=== PATIENT | male | born 1995 | race Caucasian/White ===

== ENCOUNTER 2017-11-06 05:07 | Day surgery (SDC) | payer SELFPAY ==
[2017-11-06] MEDS ORDERED: GLUCAGON 1 MG/VIAL ONE ×2 (06:22→08:08)
--- NOTE | 2017-11-06 09:05 | ER ---
Nurse's Notes [facility] Name: Adalberto Kidd Age: 22 yrs Sex: Male : 1995 Arrival Date: 11/06/2017 Time: 05:10 Bed 4 Private MD: Diagnosis: Esophageal obstruction-Food bolus Presentation: 11/06 05:19 Presenting complaint: Patient states: he has a piece of steak from a fajita he ate last bb night at approx 1800 has tried to get it out himself but has not been successful pt has had this happen in the past several times but it has always been resolved on its own. Pt is now having chest pain as well. Transition of care: patient was not received from another setting of care. Onset of symptoms was November 05, 2017. Risk Assessment: Do you want to hurt yourself or someone else? Patient reports no desire to harm self or others. Initial Sepsis Screen: Does the patient meet any 2 criteria? No. Patient's initial sepsis screen is negative. Does the patient have a suspected source of infection? No. Patient's initial sepsis screen is negative. Care prior to arrival: None. 05:19 Method Of Arrival: Ambulatory bb 05:19 Acuity: IRVIN 2 bb Historical: - Allergies: 05:21 No Known Allergies; bb - Home Meds: 05:21 None [Active]; bb - PMHx: 05:21 None; bb - PSHx: 05:21 None; bb - Immunization history:: Adult Immunizations up to date. - Social history:: Smoking status: Patient/guardian denies using tobacco, Patient uses alcohol, occasionally. Patient/guardian denies using street drugs. - Ebola Screening: : No symptoms or risks identified at this time. Screenin:27 Abuse screen: Denies threats or abuse. Denies injuries from another. Nutritional lp1 screening: No deficits noted. Tuberculosis screening: No symptoms or risk factors identified. Fall Risk None identified. Assessment: 05:22 General: Appears in no apparent distress. Behavior is calm, cooperative, appropriate lp1 for age. Pain: Complains of pain in throat Pain currently is 6 out of 10 on a pain scale. Neuro: Level of Consciousness is awake, alert, obeys commands. Cardiovascular: Patient's skin is warm and dry. Respiratory: Respiratory effort is even, unlabored, Respiratory pattern is regular, symmetrical. GI: No signs and/or symptoms were reported involving the gastrointestinal system. : No signs and/or symptoms were reported regarding the genitourinary system. EENT: Reports difficulty swallowing States feeling like piece of fajita meat is stuck in throat. Derm: Skin is pink, warm \\T\\ dry. Musculoskeletal: Circulation, motion, and sensation intact. 06:25 Reassessment: Patient appears in no apparent distress at this time. No changes from lp1 previously documented assessment. Patient and/or family updated on plan of care and expected duration. Pain level reassessed. Patient sitting comfortably, no drooling noted. 07:15 Reassessment: Patient appears in no apparent distress at this time. Patient and/or hb family updated on plan of care and expected duration. Pain level reassessed. Patient is alert, oriented x 3, equal unlabored respirations, skin warm/dry/pink. 08:08 Reassessment: Pt c/o substernal and throat "pressure." NAD. SpO2 100% on RA. DURABLE MEDICAL EQUIPMENT TECHNICIAN Rodney notified, repeat glucagon administered as ordered. 08:46 Reassessment: PO challenge failed. Pt had immediate pain and vomit after 1 sip of hb water. AGUSTIN Stevens notified. 09:40 Reassessment: Patient appears in no apparent distress at this time. Patient and/or hb family updated on plan of care and expected duration. Pain level reassessed. Patient is alert, oriented x 3, equal unlabored respirations, skin warm/dry/pink. Admission ordered, awaiting room assignment at this time. Vital Signs: 05:21 BP 127 / 89; Pulse 86; Resp 16 S; Temp 97.9(O); Pulse Ox 98% on R/A; Weight 97.52 kg bb (R); Height 5 ft. 6 in. (167.64 cm) (R); Pain 7/10; 06:25 BP 127 / 87; Pulse 92; Resp 18; Pulse Ox 100% on R/A; lp1 07:23 BP 128 / 86; Pulse 98; Resp 18; Pulse Ox 99% ; sv 08:09 BP 106 / 56; Pulse 88; Resp 15; Pulse Ox 100% on R/A; hb 09:00 BP 102 / 47; Pulse 78; Resp 15; Pulse Ox 100% on R/A; hb 05:21 Body Mass Index 34.70 (97.52 kg, 167.64 cm) ED Course: 05:10 Patient arrived in ED. es 05:21 Triage completed. bb 05:21 Milena Alvarado RN is Primary Nurse. lp1 05:21 Arm band placed on Patient placed in an exam room, on a stretcher, on pulse oximetry. bb 05:28 Patient has correct armband on for positive identification. lp1 06:04 Rodney Barnett NP is PHCP. pm1 06:04 Jude Mcpherson MD is Attending Physician. pm1 06:24 Inserted saline lock: 20 gauge in right antecubital area, using aseptic technique. lp1 06:52 Primary Nurse role handed off by Milena Alvarado RN 07:56 Barbara Arnold RN is Primary Nurse. hb 09:02 Arnav Ortiz MD is Hospitalizing Provider. pm1 Administered Medications: 06:24 Drug: Glucagon 1 mg Route: IVP; Site: right antecubital; lp1 07:10 Follow up: Response: No adverse reaction hb 08:07 Drug: Glucagon 1 mg Route: IVP; Site: right antecubital; hb Outcome: 09:04 Decision to Hospitalize by Provider. pm1 10:25 Patient left the ED. Signatures: Loretta Garcia RN ESTUARDO Nina Kessler Iliana Villalobos RN RN Milena Alvarado RN RN lp1 Rodney Barnett NP DURABLE MEDICAL EQUIPMENT TECHNICIAN pm1 Barbara Arnold RN RN Anusha Bowen Corrections: (The following items were deleted from the chart) 06:26 06:25 Reassessment: Patient appears in no apparent distress at this time. No changes lp1 from previously documented assessment. Patient and/or family updated on plan of care and expected duration. Pain level reassessed. lp1 08:09 07:56 Reassessment: Patient appears in no apparent distress at this time. Patient hb and/or family updated on plan of care and expected duration. Pain level reassessed. Patient is alert, oriented x 3, equal unlabored respirations, skin warm/dry/pink. hb
--- NOTE | 2017-11-06 09:05 | EDPHYS ---
Physician Documentation [facility] Name: Adalberto Kidd Age: 22 yrs Sex: Male : 1995 Arrival Date: 11/06/2017 Time: 05:10 Bed 4 Private MD: ED Physician Jude Mcpherson HPI: 11/06 07:00 This 22 yrs old Male presents to ER via Ambulatory with complaints of Food pm1 stuck in throat. 07:00 The patient presents with a foreign body sensation in the throat. The patient describes pm1 throat pain as constant. Onset: The symptoms/episode began/occurred last night, at 18:00. Severity of symptoms: in the emergency department the symptoms are unchanged, despite home interventions. Modifying factors: The symptoms are alleviated by nothing, the symptoms are aggravated by fluids, foods, Patient's oral intake status: unable to tolerate fluids, unable to tolerate foods. Associated signs and symptoms: Pertinent positives: chest pain, Sore throat Pertinent negatives shortness of breath. The patient has experienced similar episodes in the past, Patient reports that he has difficulty with swallowing meats for many years. When he eats meats he has to zina it down with fluids in order get it to pass. Last night was the first time that he was unable to get the food to pass. Patient ate a piece of steak. The patient has not recently seen a physician, and does not have an established primary care provider. Historical: - Allergies: 05:21 No Known Allergies; bb - Home Meds: 05:21 None [Active]; bb - PMHx: 05:21 None; bb - PSHx: 05:21 None; bb - Immunization history:: Adult Immunizations up to date. - Social history:: Smoking status: Patient/guardian denies using tobacco, Patient uses alcohol, occasionally. Patient/guardian denies using street drugs. - Ebola Screening: : No symptoms or risks identified at this time. ROS: 07:00 Constitutional: Negative for fever, chills, and weight loss, Eyes: Negative for injury, pm1 pain, redness, and discharge, Neck: Negative for injury, pain, and swelling. 07:00 Respiratory: Negative for shortness of breath, cough, wheezing, and pleuritic chest pain, Abdomen/GI: Negative for abdominal pain, nausea, vomiting, diarrhea, and constipation, Back: Negative for injury and pain, : Negative for injury, bleeding, discharge, and swelling, MS/Extremity: Negative for injury and deformity, Skin: Negative for injury, rash, and discoloration. 07:00 Neuro: Negative for headache, weakness, numbness, tingling, and seizure. 07:00 ENT: Positive for difficulty swallowing, foreign body sensation, Negative for difficulty handling secretions. 07:00 Cardiovascular: Positive for chest pain, Negative for edema, palpitations. Exam: 07:00 Constitutional: This is a well developed, well nourished patient who is awake, alert, pm1 and in no acute distress. Head/Face: Normocephalic, atraumatic. Eyes: Pupils equal round and reactive to light, extra-ocular motions intact. Lids and lashes normal. Conjunctiva and sclera are non-icteric and not injected. Cornea within normal limits. Periorbital areas with no swelling, redness, or edema. ENT: Nares patent. No nasal discharge, no septal abnormalities noted. Tympanic membranes are normal and external auditory canals are clear. Oropharynx with no redness, swelling, or masses, exudates, or evidence of obstruction, uvula midline. Mucous membranes moist. Neck: Trachea midline, no thyromegaly or masses palpated, and no cervical lymphadenopathy. Supple, full range of motion without nuchal rigidity, or vertebral point tenderness. No Meningismus. Chest/axilla: Normal chest wall appearance and motion. Nontender with no deformity. No lesions are appreciated. Cardiovascular: Regular rate and rhythm with a normal S1 and S2. No gallops, murmurs, or rubs. No pulse deficits. Respiratory: Lungs have equal breath sounds bilaterally, clear to auscultation and percussion. No rales, rhonchi or wheezes noted. No increased work of breathing, no retractions or nasal flaring. Abdomen/GI: Soft, non-tender, with normal bowel sounds. No distension or tympany. No guarding or rebound. No evidence of tenderness throughout. Back: No spinal tenderness. No costovertebral tenderness. Full range of motion. Skin: Warm, dry with normal turgor. Normal color with no rashes, no lesions, and no evidence of cellulitis. MS/ Extremity: Pulses equal, no cyanosis. Neurovascular intact. Full, normal range of motion. 07:00 Neuro: Orientation: is normal, Motor: is normal, Sensation: is normal, no obvious gross deficits. Vital Signs: 05:21 BP 127 / 89; Pulse 86; Resp 16 S; Temp 97.9(O); Pulse Ox 98% on R/A; Weight 97.52 kg bb (R); Height 5 ft. 6 in. (167.64 cm) (R); Pain 7/10; 06:25 BP 127 / 87; Pulse 92; Resp 18; Pulse Ox 100% on R/A; lp1 07:23 BP 128 / 86; Pulse 98; Resp 18; Pulse Ox 99% ; sv 08:09 BP 106 / 56; Pulse 88; Resp 15; Pulse Ox 100% on R/A; hb 09:00 BP 102 / 47; Pulse 78; Resp 15; Pulse Ox 100% on R/A; hb 05:21 Body Mass Index 34.70 (97.52 kg, 167.64 cm) bb MDM: 06:18 Patient medically screened. pm1 08:30 ED course: Patient reports no improvement with medications given. Patient still has pm1 food bolus sensation. 08:42 Data reviewed: vital signs. Data interpreted: Pulse oximetry: on room air is 100 %. pm1 Interpretation: normal. 08:47 Physician consultation: Arnav Ortiz MD was called at 08:47, was contacted at 08:47, pm1 regarding patient's condition, and will see patient in OR, at 1130 and will perform EGD. 11/06 06:14 Order name: IV Saline Lock; Complete Time: 06:24 pm1 Administered Medications: 06:24 Drug: Glucagon 1 mg Route: IVP; Site: right antecubital; lp1 07:10 Follow up: Response: No adverse reaction hb 08:07 Drug: Glucagon 1 mg Route: IVP; Site: right antecubital; hb Disposition: 11/06/17 09:04 Hospitalization ordered by Arnav Ortiz for Observation. Preliminary diagnosis is Esophageal obstruction - Food bolus. - Bed requested for Operating Room. - Status is Observation. hb - Condition is Stable. - Problem is new. - Symptoms are unchanged. UTI on Admission? No Addendum: 11/11/2017 19:01 Co-signature as Attending Physician, Jude Mcpherson MD. lokesh marrufo Signatures: Jude Mcpherson MD MD pkl Ballard, Brenda, RN RN Milena Lugo RN RN lp1 Rodney Barnett, REAL ESTATE APPRAISER SUPERVISOR REAL ESTATE APPRAISER SUPERVISOR pm1 Barbara Arnold, RN RN hb Anusha Bowen Corrections: (The following items were deleted from the chart) 11/06 09:56 09:04 Hospitalization Ordered by Arnav Ortiz MD for Observation. Preliminary eb diagnosis is Esophageal obstruction - Food bolus. Bed requested for Operating Room. Status is Observation. Condition is Stable. Problem is new. Symptoms are unchanged. UTI on Admission? No. pm1 10:25 09:56 11/06/2017 09:04 Hospitalization Ordered by Arnav Ortiz MD for Observation. Preliminary diagnosis is Esophageal obstruction - Food bolus. Bed requested for Operating Room. Status is Observation. Condition is Stable. Problem is new. Symptoms are unchanged. UTI on Admission? No. eb
[2017-11-06] MEDS ORDERED: Ringers Lactate 1,000 ML IV ONE (10:40)
[2017-11-06] MEDS ORDERED: LIDOCAINE 1% MPF 2 ML AMPULE ONE (11:26)
[2017-11-06] MEDS ORDERED: PROPOFOL 200 MG/20 ML VIAL IV ONE (11:26)
[2017-11-06] MEDS ORDERED: MIDAZOLAM HCL 2 MG/2 ML INJ ONE (12:06)
--- NOTE | 2017-11-06 12:28 | ENDO RPT ---
[address], [address] EGD PROCEDURE REPORT EXAM DATE: 11/06/2017 PATIENT NAME: Adalberto Kidd MR#: [id number] BIRTHDATE: 1995 ATTENDING: Arnav Ortiz Dr STATUS: outpatient PEDIATRIC RN: Allyn Lopez and Norma Sam RN INDICATIONS: The patient is a 22 yr old Male here for an EGD due to dysphagia and chest pain PROCEDURE PERFORMED: EGD with foreign body removal and EGD with biopsy MEDICATIONS: Per Anesthesia. TOPICAL ANESTHETIC: none CONSENT: The patient understands the risks and benefits of the procedure and understands that these risks include, but are not limited to: sedation, allergic reaction, infection, perforation and/or bleeding. Alternative means of evaluation and treatment include, among others: physical exam, x-rays, and/or surgical intervention. The patient elects to proceed with this endoscopic procedure. DESCRIPTION OF PROCEDURE: During intra-op preparation period all mechanical medical equipment was checked for proper function. Hand hygiene and appropriate measures for infection prevention was taken. Procedure, possible complications, and alternatives including but not limited to the possibility of bleeding, perforation, tear, infection, sepsis, need for surgery, need for blood transfusion, and anesthesia related complications were explained to the patient. After the risks, benefits and alternatives of the procedure were thoroughly explained, Informed consent was verified, confirmed and timeout was successfully executed by the treatment team. The patient was placed in the left lateral position. The patient was anesthetized with topical anesthesia. Through the anesthetized oropharyngeal area, the scope was passed without any difficulty. The [id number] ([id number]) endoscope was introduced through the mouth and advanced to the second portion of the duodenum. Retroflexed views revealed a small hiatal hernia. The gastroscope was then slowly withdrawn and removed. Linear furrows were found in the upper to mid esophagus. Multiple biopsies were obtained after removal of meat bolus and sent to pathology. Large meat (steak) bolus impacted in the distal esophagus, pushed into the stomach with endoscope. LA Class D esophagitis was found in the lower esophagus. A secondary stricture was found in the lower esophagus. A small hiatal hernia was found Mild gastritis was found in the antrum. Multiple biopsies were obtained and sent to pathology. Multiple (2) small (2 mm) ulcers (one with central dark heme) were found in the antrum. Duodenitis was found in the bulb of the duodenum. Multiple ( 6) 2-8 mm shallow clean-based ulcers were found in the bulb of the duodenum. ADVERSE EVENTS: There were no complications. IMPRESSIONS: 1. Linear furrows in the upper to mid esophagus, s/p biopsies after foreign body removal 2. Large meat (steak) bolus impacted in the distal esophagus, pushed into the stomach with endoscope 3. LA Class D esophagitis in the lower esophagus 3. 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 A small hiatal hernia 5. Mild gastritis in the antrum, s/p biopsies 6. Multiple (2) small (2 mm) ulcers (one with central dark heme) in the antrum 7. Duodenitis in the bulb of the duodenum 8. Multiple ( 6) 2-8 mm shallow clean-based ulcers in the bulb of the duodenum RECOMMENDATIONS: 1. await biopsy results 2. acid suppression therapy REPEAT EXAM: Return in 2 week(s) for EGD with dilatation. Arnav Ortiz Dr eSigned: Arnav Ortiz Dr 11/06/2017 12:27 PM cc: CPT CODES: ICD9 CODES: PATIENT NAME: Adalberto Kidd MR#: [id number]
--- NOTE | 2017-11-06 12:38 | ENDO RPT ---
[address], [address] EGD PROCEDURE REPORT EXAM DATE: 11/06/2017 PATIENT NAME: Adalberto Kidd MR#: [id number] BIRTHDATE: 1995 ATTENDING: Arnav Ortiz Dr STATUS: outpatient TERMITE TECHNICIAN: Allyn Lopez and Norma Sam RN INDICATIONS: The patient is a 22 yr old Male here for an EGD due to dysphagia and chest pain PROCEDURE PERFORMED: EGD with foreign body removal and EGD with biopsy MEDICATIONS: Per Anesthesia. TOPICAL ANESTHETIC: none CONSENT: The patient understands the risks and benefits of the procedure and understands that these risks include, but are not limited to: sedation, allergic reaction, infection, perforation and/or bleeding. Alternative means of evaluation and treatment include, among others: physical exam, x-rays, and/or surgical intervention. The patient elects to proceed with this endoscopic procedure. DESCRIPTION OF PROCEDURE: During intra-op preparation period all mechanical medical equipment was checked for proper function. Hand hygiene and appropriate measures for infection prevention was taken. Procedure, possible complications, and alternatives including but not limited to the possibility of bleeding, perforation, tear, infection, sepsis, need for surgery, need for blood transfusion, and anesthesia related complications were explained to the patient. After the risks, benefits and alternatives of the procedure were thoroughly explained, Informed consent was verified, confirmed and timeout was successfully executed by the treatment team. The patient was placed in the left lateral position. The patient was anesthetized with topical anesthesia. Through the anesthetized oropharyngeal area, the scope was passed without any difficulty. The EG-[id number] ([id number]) endoscope was introduced through the mouth and advanced to the second portion of the duodenum. Retroflexed views revealed a small hiatal hernia. The gastroscope was then slowly withdrawn and removed. Linear furrows were found in the upper to mid esophagus. Multiple biopsies were obtained after removal of meat bolus and sent to pathology. Large meat (steak) bolus impacted in the distal esophagus, pushed into the stomach with endoscope. LA Class D esophagitis was found in the lower esophagus. A secondary stricture was found in the lower esophagus. A small hiatal hernia was found Mild gastritis was found in the antrum. Multiple biopsies were obtained and sent to pathology. Multiple (2) small (2 mm) ulcers (one with central dark heme) were found in the antrum. Few erosions in the antrum. Duodenitis was found in the bulb of the duodenum. Multiple ( 6) 2-8 mm shallow clean-based ulcers were found in the bulb of the duodenum. ADVERSE EVENTS: There were no complications. IMPRESSIONS: 1. Linear furrows in the upper to mid esophagus, s/p biopsies after foreign body removal 2. Large meat (steak) bolus impacted in the distal esophagus, pushed into the stomach with endoscope 3. LA Class D esophagitis in the lower esophagus 3. 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 A small hiatal hernia 5. Mild gastritis in the antrum, s/p biopsies 6. Multiple (2) small (2 mm) ulcers (one with central dark heme) in the antrum 7. Few erosions in the antrum 8. Duodenitis in the bulb of the duodenum 9. Multiple ( 6) 2-8 mm shallow clean-based ulcers in the bulb of the duodenum RECOMMENDATIONS: 1. await biopsy results 2. acid suppression therapy REPEAT EXAM: Return in 2 week(s) for EGD with dilatation. Arnav Ortiz Dr eSigned: Arnav Ortiz Dr 11/06/2017 12:38 PM Revised: 11/06/2017 12:38 PM cc: CPT CODES: ICD9 CODES: PATIENT NAME: Adalberto Kidd MR#: [id number]
--- NOTE | 2017-11-06 17:58 | CON ---
Date of Consultation: 11/06/2017 Reason For Consultation: Dysphagia, unable to swallow solids, liquids and even saliva. History Of Present Illness: The patient is a 22-year-old white male without significant past medical history, who presented to the hospital due to dysphagia to solids, liquids and saliva since eating a steak yesterday at home at 6 o'clock. The patient states he has been having problems with off and o n with dysphagia over the past 10 years with the food becoming stuck occasionally about 2 times per w [place], which usually goes down by itself or swallowing water. Over this time, he could not get down wi th any liquids. In fact liquids had to come back up with the saliva and he has been spitting up his saliva since that time in the emergency room and he says that the food in solids and liquids get stuc k at the level of suprasternal notch. He also notes some chest pain in the lower chest. He has been feeling since this food became stuck as well in the [id number] chest. He denies fevers, chills, n ight sweats, melena, hematochezia, hematemesis, coffee-grounds emesis, hematuria, dysuria, polydipsia , chest pain, shortness of breath. Past Medical History: Insignificant. Medications: None. Social History: He is . Two children. Occasional alcohol. No tobacco. Mother and father a live and well. Family History: No one else in the family has had problems with esophageal disorders or swallow. Review of Systems: The patient has dysphagia to solids, liquids, saliva at suprasternal notch with the chest pain at the cye-cz-vqfhs chest level. He denies any fevers, chills, night sweats, shortness of breath, seizure, syncope, lower extremity paresthesias, muscle aches, joint aches, melena, hematochezia, hematemesis, coffee-grounds emesis, hematuria, dysuria, polydipsia hemoptysis. No depression and anxiety. Physical Examination: Vital Signs: The patient is afebrile. Vital signs stable. He is 5 feet 6 inches, 215 pounds. BMI of 34.7 kg/m2. HEENT: Normocephalic, atraumatic. Anicteric. Pupils equal, round, and reactive to light. Extraocu lar movements are intact. Oropharynx is clear. Neck: Supple. No masses or bruits. Respirations: Clear to auscultation bilaterally. Cardiac: Regular rate and rhythm. No gallops. Abdomen: Positive bowel sounds. Soft, nontender, nondistended. Positive bowel sounds. Extremities: No clubbing, cyanosis, or edema. 2+ pulses. Neuro: Alert and oriented x3. Grossly nonfocal. 5/5 motor strength to light touch. Laboratory Data: The patient has no data in the emergency room. No labs or x-rays taken. Assessment: Dysphagia to solids, liquids, and saliva. The suprasternal notch indicative of meat fauzia us impaction after eating steak yesterday at 6 p.m. He also has chest pain at the now-vc-minhr chest level probably secondary to his meat bolus impaction as well. Of note, this has been ongoing for th e past 10 years. Occasional dysphagia usually passes with swallowing saliva with water, but now he c annot even keep down the saliva or water. Recommendation: 1.Urgent EGD. 2.Keep patient n.p.o. 3.GI Clinic followup, probable needs some dilatations of the therapy as per indicated from this proc edure EGD today. EDWIN/MARIANA Voice ID: [id number] Report ID: [id number]
== END 2017-11-06 13:20 | disposition home or self-care (01) ==
LOC: ER 05:07 → ERHOLD 10:10 → UNDOADMOB 10:10 → DS 10:10
PROVIDERS: ATTEND Internal Medicine Gastroenterology
PROC: 0DB28ZX Excision of Middle Esophagus, Via Natural or Artificial Opening Endoscopic, Diagnostic (ICD-10-PCS; 2017-11-06)
PROC: 0DB68ZX Excision of Stomach, Via Natural or Artificial Opening Endoscopic, Diagnostic (ICD-10-PCS; 2017-11-06)
PROC: 0DC18ZZ Extirpation of Matter from Upper Esophagus, Via Natural or Artificial Opening Endoscopic (ICD-10-PCS; principal; 2017-11-06 11:30)
DX: T18.128A Food in esophagus causing other injury, initial encounter (principal); K22.2 Esophageal obstruction; K20.0 Eosinophilic esophagitis; K29.60 Other gastritis without bleeding; K25.9 Gastric ulcer, unspecified as acute or chronic, without hemorrhage or perforation; K26.9 Duodenal ulcer, unspecified as acute or chronic, without hemorrhage or perforation; K29.80 Duodenitis without bleeding; K44.9 Diaphragmatic hernia without obstruction or gangrene
CPT/HCPCS: 88305; 88312; 96374; 99284; J1610; J2001; J2250

== ENCOUNTER 2020-09-01 23:47 | Emergency (ER) | payer SELFPAY ==
[2020-09-02] MEDS ORDERED: NA CHLORIDE 0.9% 1,000 ML ONE (00:48)
[2020-09-02 00:55] LABS: Absolute Lymphocytes (CBC) 3.5 K/uL (0.7-4.9); Basophils % 1.1 % (0-1.3); Hematocrit 44.9 % (39.6-49.0); Lymphocytes % 26.6 % (15.3-44.8); MPV 9.6 fL (7.6-11.3); RBC Red Blood Cell Count 5.17 M/uL (4.33-5.43)
[2020-09-02 01:03] LABS: Albumin 4.2 g/dL (3.4-5.0); Bilirubin Direct 0.1 mg/dL (0-0.2); Bilirubin Total 0.4 mg/dL (0.2-1.0); Potassium 4.1 mmol/L (3.5-5.1)
[2020-09-02] MEDS ORDERED: ONDANSETRON 4 MG/2 ML VIAL ONE (01:03)
[2020-09-02] MEDS ORDERED: PANTOPRAZOLE 40 MG INJ ONE ×2 (01:03→01:08)
[2020-09-02] MEDS ORDERED: MORPHINE 4 MG/ML SYR ONE (01:03)
[2020-09-02] MEDS ORDERED: NA CHLORIDE 0.9% 250 ML ONE (01:03)
[2020-09-02] MEDS ORDERED: OCTREOTIDE ACETATE 100 MCG/ML ONE (01:08)
[2020-09-02] MEDS ORDERED: NA CHLORIDE 0.9% 0 ML ONE (01:10)
[2020-09-02] MEDS ORDERED: HYDROMORPHONE HCL 1 MG/ML INJ ONE (02:42)
[2020-09-02 03:54] LABS: Hematocrit 40.7 % (39.6-49.0)
--- NOTE | 2020-09-02 04:31 | EDPHYS ---
Physician Documentation [facility] Name: Adalberto Kidd Age: 25 yrs Sex: Male : 1995 Arrival Date: 09/01/2020 Time: 23:47 Bed 16 Private MD: ED Physician Octavio Pfeiffer HPI: 09/02 01:34 This 25 yrs old Male presents to ER via Ambulatory with complaints of ma2 Abdominal Pain, Vomiting Blood, Breathing Difficulty. 01:34 The patient has shortness of breath at rest. Onset: The symptoms/episode began/occurred ma2 gradually, 2 day(s) ago. Associated signs and symptoms: Pertinent positives: vomiting, Pertinent negatives: diaphoresis, fever, loss of consciousness, nausea. Severity of symptoms: At their worst the symptoms were mild in the emergency department the symptoms are unchanged. The patient has not experienced similar symptoms in the past. Historical: - Allergies: 00:04 No Known Allergies; em - PMHx: 00:04 None; em - PSHx: 00:04 None; em - Immunization history:: Adult Immunizations up to date. - Social history:: Smoking status: Patient denies any tobacco usage or history of. - Family history:: not pertinent. ROS: 01:34 Constitutional: Negative for fever, chills, and weight loss, Cardiovascular: Negative ma2 for chest pain, palpitations, and edema. 01:34 All other systems are negative. Exam: 01:34 Constitutional: This is a well developed, well nourished patient who is awake, alert, ma2 and in no acute distress. Head/Face: Normocephalic, atraumatic. Eyes: Pupils equal round and reactive to light, extra-ocular motions intact. Lids and lashes normal. Conjunctiva and sclera are non-icteric and not injected. Cornea within normal limits. Periorbital areas with no swelling, redness, or edema. ENT: Nares patent. No nasal discharge, no septal abnormalities noted. Tympanic membranes are normal and external auditory canals are clear. Oropharynx with no redness, swelling, or masses, exudates, or evidence of obstruction, uvula midline. Mucous membranes moist. Neck: Trachea midline, no thyromegaly or masses palpated, and no cervical lymphadenopathy. Supple, full range of motion without nuchal rigidity, or vertebral point tenderness. No Meningismus. Chest/axilla: Normal chest wall appearance and motion. Nontender with no deformity. No lesions are appreciated. Cardiovascular: Regular rate and rhythm with a normal S1 and S2. No gallops, murmurs, or rubs. Normal PMI, no JVD. No pulse deficits. Respiratory: Lungs have equal breath sounds bilaterally, clear to auscultation and percussion. No rales, rhonchi or wheezes noted. No increased work of breathing, no retractions or nasal flaring. Abdomen/GI: Soft, non-tender, with normal bowel sounds. No distension or tympany. No guarding or rebound. No evidence of tenderness throughout. Skin: Warm, dry with normal turgor. Normal color with no rashes, no lesions, and no evidence of cellulitis. MS/ Extremity: Pulses equal, no cyanosis. Neurovascular intact. Full, normal range of motion. Neuro: Awake and alert, GCS 15, oriented to person, place, time, and situation. Cranial nerves II-XII grossly intact. Motor strength 5/5 in all extremities. Sensory grossly intact. Cerebellar exam normal. Normal gait. Vital Signs: 00:01 Pulse 103; Resp 24; Temp 98.2; Pulse Ox 99% on R/A; Weight 99.79 kg; Height 5 ft. 7 in. em (170.18 cm); Pain 10/10; 00:01 em 01:15 BP 123 / 72; Pulse 114; Resp 20 S; Pulse Ox 94% on R/A; ad5 02:46 BP 108 / 58; Pulse 120; Resp 20 S; Pulse Ox 93% on R/A; ad5 03:23 BP 107 / 63; Pulse 116; Resp 18 S; Pulse Ox 93% on R/A; ad5 04:45 BP 103 / 61; Pulse 112; Resp 18 S; Pulse Ox 96% on R/A; ad5 00:01 Body Mass Index 34.46 (99.79 kg, 170.18 cm) em 00:01 unable to obtain BP at this time due to pt moving in pain em MDM: 00:23 Patient medically screened. ma2 01:34 Differential diagnosis: Anemia Anxiety Reaction reactive airway disease, gastritis vs ma2 PUD. 04:29 Data reviewed: vital signs, nurses notes. Counseling: I had a detailed discussion with ma2 the patient and/or guardian regarding: the need for outpatient follow up. Response to treatment: the patient's symptoms have resolved after treatment. 09/02 00:15 Order name: Basic Metabolic Panel; Complete Time: :37 em 09/02 00:15 Order name: CBC with Diff; Complete Time: :37 em 09/02 00:15 Order name: Hepatic Function; Complete Time: :37 em 09/02 00:15 Order name: Lipase; Complete Time: :37 em 09/02 00:25 Order name: LAB Add On ad5 09/02 00:38 Order name: Type And Screen ma2 09/02 00:38 Order name: CT Abd/Pelvis - IV Contrast Only ma2 09/02 00:39 Order name: Chest Single View XRAY ma2 09/02 00:40 Order name: Type and Screen; Complete Time: 04:29 EDMS 09/02 03:25 Order name: Hemoglobin; Complete Time: 04:29 EDMS 09/02 03:25 Order name: Hematocrit; Complete Time: 04:29 EDMS 09/02 04:15 Order name: ABO/RH no charge; Complete Time: 04:29 EDMS 09/02 00:15 Order name: IV Saline Lock; Complete Time: 00:24 em 09/02 00:15 Order name: Labs collected and sent; Complete Time: 00:24 em Administered Medications: 01:03 Drug: Zofran (Ondansetron) 4 mg Route: IVP; Site: left antecubital; ad5 05:00 Follow up: Response: No adverse reaction; Nausea is decreased ad5 01:04 Drug: morphine 4 mg Route: IVP; Site: left antecubital; ad5 05:01 Follow up: Response: No adverse reaction; Pain is decreased ad5 01:05 Drug: Pantoprazole 80 mg Route: IVP; Site: left antecubital; ad5 05:01 Follow up: Response: No adverse reaction ad5 01:07 Drug: NS 0.9% 1000 ml Route: IV; Rate: 1 bolus; Site: left antecubital; ad5 05:01 Follow up: IV Status: Completed infusion; IV Intake: 1000ml ad5 01:10 Drug: Pantoprazole 8 mg/hr Route: IV; Rate: 25 ml/hr; Site: left antecubital; ad5 05:01 Follow up: Response: No adverse reaction; IV Status: Completed infusion ad5 02:25 Drug: Dilaudid (HYDROmorphone) 1 mg {Note: RASS 0.} Route: IVP; Site: left antecubital; ad5 03:23 Follow up: Response: No adverse reaction; Pain is decreased; RASS: Alert and Calm (0) ad5 05:01 Not Given (Patient Refused): Octreotide 50 mcg IV at calculated rate once ad5 Disposition Summary: 09/02/20 04:30 Discharge Ordered Location: Home ma2 Condition: Stable ma2 Diagnosis - Acute gastritis ma2 Followup: ma2 - With: Arnav Ortiz MD - When: Tomorrow - Reason: If symptoms return Discharge Instructions: - Discharge Summary Sheet ma2 - Gastritis, Adult, [id number] ma2 Forms: - Medication Reconciliation Form ma2 - Thank You Letter ma2 - Antibiotic Education ma2 - Prescription Opioid Use ma2 Prescriptions: - Zofran 4 mg Oral Tablet - take 1 tablet by ORAL route every 12 hours As needed; 20 tablet; Refills: 0, ma2 Product Selection Permitted - Diclofenac Sodium 75 mg Oral Tablet Sustained Release - take 1 tablet by ORAL route 2 times per day; 30 tablet; Refills: 0, Product ma2 Selection Permitted - Pepcid 20 mg Oral Tablet - take 1 tablet by ORAL route once daily; 20 tablet; Refills: 0, Product ma2 Selection Permitted Signatures: Dispatcher [employer] Alex Gonzalez, RN Octavio Sargent MD MD ma2 Quan Daley ad5
--- NOTE | 2020-09-02 04:31 | ER ---
Nurse's Notes [facility] Name: Adalberto Kidd Age: 25 yrs Sex: Male : 1995 Arrival Date: 09/01/2020 Time: 23:47 Bed 16 Private MD: Diagnosis: Acute gastritis Presentation: 09/02 00:01 Chief complaint: Patient states: vomiting blood with right upper quad. pain, started at em 2130. Coronavirus screen: Client denies travel out of the [place] in the last 14 days. Ebola Screen: Patient negative for fever greater than or equal to 101.5 degrees Fahrenheit, and additional compatible Ebola Virus Disease symptoms Patient denies exposure to infectious person. Patient denies travel to an Ebola-affected area in the 21 days before illness onset. No symptoms or risks identified at this time. Initial Sepsis Screen: Does the patient meet any 2 criteria? No. Patient's initial sepsis screen is negative. Does the patient have a suspected source of infection? No. Patient's initial sepsis screen is negative. Risk Assessment: Do you want to hurt yourself or someone else? Patient reports no desire to harm self or others. Onset of symptoms was September 02, 2020. 00:01 Method Of Arrival: Ambulatory em 00:01 Acuity: IRVIN 2 em Historical: - Allergies: 00:04 No Known Allergies; em - PMHx: 00:04 None; em - PSHx: 00:04 None; em - Immunization history:: Adult Immunizations up to date. - Social history:: Smoking status: Patient denies any tobacco usage or history of. - Family history:: not pertinent. Screenin:25 Abuse screen: Denies threats or abuse. Denies injuries from another. Nutritional ad5 screening: No deficits noted. Tuberculosis screening: No symptoms or risk factors identified. Fall Risk None identified. Assessment: 01:14 General: Appears uncomfortable, Behavior is calm, cooperative, appropriate for age. ad5 Pain: Complains of pain in RUQ abd. Neuro: No deficits noted. Level of Consciousness is awake, alert, obeys commands, Oriented to person, place, time, situation, Appropriate for age. Cardiovascular: No deficits noted. Heart tones present Capillary refill < 3 seconds Patient's skin is warm and dry. Rhythm is regular. Respiratory: No deficits noted. Airway is patent Respiratory effort is even, unlabored, Respiratory pattern is regular, symmetrical. GI: Bowel sounds present X 4 quads. Guarding noted Reports upper abdominal pain, nausea, vomiting, Pt reports blood in emesis. : No deficits noted. No signs and/or symptoms were reported regarding the genitourinary system. Derm: Skin is pink, warm \T\ dry. 02:20 Reassessment: Patient and/or family updated on plan of care and expected duration. Pain ad5 level reassessed. Pt reports continued pain to epigastric area, MD aware, orders for additional analgesia at this time. Pt VSS, resp with ease. NAD noted otherwise, will continue to monitor. 03:23 Reassessment: Patient appears in no apparent distress at this time. Patient and/or ad5 family updated on plan of care and expected duration. Pain level reassessed. Patient is alert, oriented x 3, equal unlabored respirations, skin warm/dry/pink. Patient states symptoms have improved. 04:35 Reassessment: Patient and/or family updated on plan of care and expected duration. Pain ad5 level reassessed. Patient is alert, oriented x 3, equal unlabored respirations, skin warm/dry/pink. Patient states symptoms have improved. Vital Signs: 00:01 Pulse 103; Resp 24; Temp 98.2; Pulse Ox 99% on R/A; Weight 99.79 kg; Height 5 ft. 7 in. em (170.18 cm); Pain 10; 00:01 em 01:15 BP 123 / 72; Pulse 114; Resp 20 S; Pulse Ox 94% on R/A; ad5 02:46 BP 108 / 58; Pulse 120; Resp 20 S; Pulse Ox 93% on R/A; ad5 03:23 BP 107 / 63; Pulse 116; Resp 18 S; Pulse Ox 93% on R/A; ad5 04:45 BP 103 / 61; Pulse 112; Resp 18 S; Pulse Ox 96% on R/A; ad5 00:01 Body Mass Index 34.46 (99.79 kg, 170.18 cm) em 00:01 unable to obtain BP at this time due to pt moving in pain em ED Course: 09/01 23:47 Patient arrived in ED. bp1 09/02 00:04 Triage completed. em 00:04 Arm band placed on. em 00:10 Quan Daley is Primary Nurse. ad5 00:23 Octavio Pfeiffer MD is Attending Physician. ma2 00:25 Patient has correct armband on for positive identification. Bed in low position. Call ad5 light in reach. Side rails up X 1. Adult w/ patient. Pulse ox on. NIBP on. Door closed. Noise minimized. 01:00 Initial lab(s) drawn, by me, sent to lab. Inserted saline lock: 20 gauge in left ad5 antecubital area, using aseptic technique. Blood collected. 01:11 Chest Single View XRAY In Process Unspecified. EDMS 01:39 CT Abd/Pelvis - IV Contrast Only In Process Unspecified. EDMS 04:30 Arnav Ortiz MD is Referral Physician. ma2 05:02 No provider procedures requiring assistance completed. IV discontinued, intact, ad5 bleeding controlled, No redness/swelling at site. Pressure dressing applied. Administered Medications: 01:03 Drug: Zofran (Ondansetron) 4 mg Route: IVP; Site: left antecubital; ad5 05:00 Follow up: Response: No adverse reaction; Nausea is decreased ad5 01:04 Drug: morphine 4 mg Route: IVP; Site: left antecubital; ad5 05:01 Follow up: Response: No adverse reaction; Pain is decreased ad5 01:05 Drug: Pantoprazole 80 mg Route: IVP; Site: left antecubital; ad5 05:01 Follow up: Response: No adverse reaction ad5 01:07 Drug: NS 0.9% 1000 ml Route: IV; Rate: 1 bolus; Site: left antecubital; ad5 05:01 Follow up: IV Status: Completed infusion; IV Intake: 1000ml ad5 01:10 Drug: Pantoprazole 8 mg/hr Route: IV; Rate: 25 ml/hr; Site: left antecubital; ad5 05:01 Follow up: Response: No adverse reaction; IV Status: Completed infusion ad5 02:25 Drug: Dilaudid (HYDROmorphone) 1 mg {Note: RASS 0.} Route: IVP; Site: left antecubital; ad5 03:23 Follow up: Response: No adverse reaction; Pain is decreased; RASS: Alert and Calm (0) ad5 05:01 Not Given (Patient Refused): Octreotide 50 mcg IV at calculated rate once ad5 Intake: 05:01 IV: 1000ml; Total: 1000ml. ad5 Outcome: 04:30 Discharge ordered by . mari 05:02 Discharged to home ambulatory, with significant other. ad5 05:02 Condition: stable 05:02 Discharge instructions given to patient, Instructed on discharge instructions, follow up and referral plans. medication usage, Demonstrated understanding of instructions, follow-up care, medications, Prescriptions given X 3. 05:03 Patient left the ED. ad5 Signatures: Dispatcher [employer] Alex Gonzalez RN RN em Alzahri, Mohammad, MD MD ma2 Gale Tejeda Andrea ad5
--- NOTE | 2020-09-02 09:05 | RAD REPORT ---
EXAM DESCRIPTION: RAD - Chest Single View - 09/02/2020 1:11 am CLINICAL HISTORY: ABDOMINAL DISTENTION Chest pain. COMPARISON: Chest Pa And Lat (2 Views) dated 03/24/2016 FINDINGS: Portable technique limits examination quality. The lungs are underinflated resulting in vascular crowding. No gross pulmonary infiltrate. The heart is normal in size. No displaced fractures. IMPRESSION: Underinflated lungs.
--- NOTE | 2020-09-02 10:37 | RAD REPORT ---
EXAM DESCRIPTION: CT Abdomen and Pelvis With Intravenous Contrast CLINICAL HISTORY: The patient is 25 years old and is Male; ABD PAIN TECHNIQUE: Axial computed tomography images of the abdomen and pelvis with intravenous contrast. S agittal and coronal reformatted images were created and reviewed. This CT exam was performed using one or more of the following dose reduction techniques: automated exposure control, adjustment of t he mA and/or kV according to patient size, and/or use of iterative reconstruction technique. COMPARISON: No relevant prior studies available. FINDINGS: Lung bases: Unremarkable. No mass. No consolidation. Pleural space: Small right pleural effusion. Mediastinum: Small hiatal hernia. ABDOMEN: Liver: Diffuse hepatic steatosis. Gallbladder and bile ducts: Unremarkable. No calcified stones. No ductal dilation. Pancreas: Unremarkable. No mass. No ductal dilation. Spleen: Unremarkable. No splenomegaly. Adrenals: Unremarkable. No mass. Kidneys and ureters: Unremarkable. No solid mass. No hydronephrosis. Stomach and bowel: Unremarkable. No obstruction. No mucosal thickening. PELVIS: Appendix: The appendix is normal. Bladder: Unremarkable. No mass. Reproductive: Unremarkable as visualized. ABDOMEN and PELVIS: Intraperitoneal space: Unremarkable. No free air. No significant fluid collection. Bones/joints: No acute fracture. No dislocation. Soft tissues: Unremarkable. Vasculature: Unremarkable. No abdominal aortic aneurysm. Lymph nodes: Prominent round 1.1 cm perigastric lymph node. IMPRESSION: 1. Small right pleural effusion. 2. Small hiatal hernia. 3. Diffuse hepatic steatosis. Electronically signed by: Paul Pat MD 09/02/2020 2:15 AM CDT Due to temporary technical issues with the PACS/Fluency reporting system, reports are being signed by the in house radiologist without review as a courtesy to ensure prompt reporting. The interpreting r adiologist is fully responsible for the content of the report.
== END 2020-09-02 05:03 | disposition home or self-care (01) ==
LOC: ER 23:47
DX: K29.00 Acute gastritis without bleeding (principal)
CPT/HCPCS: 36415; 71045; 74177; 80048; 80076; 83690; 85014; 85018; 85025; 86850; 86900; 86901; 96365; 96366; 96375; 99284; C9113; J1170; J2354; J2405; J7030; J7050; Q9967